=== PATIENT | male | born 1965 | race Caucasian/White ===

== ENCOUNTER 2024-07-28 14:09 | Outpatient (AMB) | payer OTHER, SELFPAY ==
--- NOTE | 2024-07-28 14:12 | MHC.PC.OV ---
Vital Signs 07/28/24 14:24 Height 6 ft 0.83 in Weight 239 lb 8 oz BMI 31.7 BP 116/76 Blood Pressure Location Lt brachial Position Sitting Respiration 16 Pulse 84 Pulse Source Pulse Oximeter Temp 98.2 F Temp Source Oral Pulse Oximetry (%) 94 Oxygen Delivery Method Room Air Intake Visit Reasons: new patient/ dermatology referral Intake Note: New patient visit. Dermatology referral Document Control Coordinator Required: No Allergies No Known Allergies Allergy (Verified 07/28/24 14:13) Tobacco use date assessed: 07/28/24 Dental Screening Dental Screen Date: 07/28/24 Did you have a dental visit in the last 12 months?: Yes Did you have a dental problem in the last 6 months where you did not have access to dental care?: No Was dental information given to patient?: Patient has dentist HPI HPI Comments History of Present Illness Details The patient is a 59 year old male with a past medical history of hypothyroid, , hyperlipidemia, diverticulitis, psoriasis presenting for follow up Hypothyroid: on levothyroxine 150mcg daily He continues to get episodes of shortness of breath-these are during activity, bending over, standing up. Gets epigastric pain when this happens. Denies heartburn, reflux. Has had q waves on EKG. He was referred for stress testing but never heard about scheduling. Back pain severe in upper lower back May 13. Woke up in excruciating pain. Localized at first then migrated bilaterally after a few day toward the thoracic spine wrapped bilaterally around to the epigastrium. Last for ~4 weeks then over the course of a few days subsided. ROS see HPI PHYSICAL EXAM: GENERAL: Alert and oriented x 3. NAD EYES: EOMI. Anicteric. HENT: Moist mucous membranes. No scleral icterus. No cervical lymphadenopathy. LUNGS: Clear to auscultation bilaterally. CARDIOVASCULAR: Regular rate and rhythm. No murmur. No JVD. ABDOMEN: Soft, non-tender +bs EXTREMITIES: No edema. Non-tender. SKIN: No rashes or lesions. Warm. NEUROLOGIC: No focal neurological deficits. CN II-XII grossly intact PSYCHIATRIC: Cooperative. Appropriate mood and affect [facility] Medical History (Updated 07/30/24 @ 16:15 by Juhi Leyva MD) Rotator cuff syndrome of right shoulder SOB (shortness of breath) Psoriasis Nephrolithiasis Obesity, Class I, BMI 30-34.9 Hypothyroidism Hx of hepatitis C Hx of gallstones History of diverticulitis Dyslipidemia Surgical History (Updated 07/28/24 @ 14:30 by Yesenia Boyce CMA) History of colon resection Hx of colonoscopy History of colostomy reversal Family History (Updated 07/28/24 @ 14:33 by Yesenia Boyce CMA) Father Afib Coronary artery disease involving coronary bypass graft Heart attack High cholesterol Sister Breast cancer Paternal Grandmother Dementia Social History (Updated 07/28/24 @ 14:27 by Yesenia Boyce CMA) Housing: House Patient Tobacco Use Status: Former Tobacco user Cigarette Packs Per Day: 1 Years Smoked: 20 e-Cigarette/Vaping Use: Never Used Second Hand Smoke Exposure: No Substance Use Type: Former Substance User and Marijuana service: No Current occupational status: retired Cognitive needs: No Hearing needs: No Vision needs: No Questionnaire PHQ-9 Over the last 2 weeks, how often have you been bothered by any of the following problems? 1. Little interest or pleasure in doing things: not at all 2. Feeling down, depressed, or hopeless: not at all 3. Trouble falling or staying asleep, or sleeping too much: not at all 4. Feeling tired or having little energy: not at all 5. Poor appetite or overeating: not at all 6. Feeling bad about yourself - or that you are a failure or have let yourself or your family down: not at all 7. Trouble concentrating on things, such as reading the newspaper or watching television: not at all 8. Moving or speaking so slowly that other people could have noticed. Or the opposite - being so fidgety or restless that you have been moving around a lot more than usual: not at all 9. Thoughts that you would be better off or of hurting yourself in some way: not at all Total score: 0 Depression Screening Interpretation: Negative Depression Screening Done: Yes 74758 - PHQ-9 Billing: Yes Source: Developed by Drs. Sebas Melara, Lisa Guido, Darrell Santiago and colleagues, with an educational stephanie from [employer]. Thrive Questionnaire Date Thrive assessed: 07/23/24 I am a: Patient What is your living situation today?: I choose not to answer this question Within the past 12 months, did the food you bought not last and you didn't have the money to get more?: I choose not to answer this question Within the past 12 months, did you worry whether your food would run out before you got money to buy more?: I choose not to answer this question Do you have trouble paying for medicines?: I choose not to answer this question Do you have trouble getting transportation to medical appointments?: I choose not to answer this question Do you have trouble paying your heating and electricity bill?: I choose not to answer this question Do you have trouble taking care of your child, family member or friend?: I choose not to answer this question Do you have trouble with day-to-day activities such as bathing, preparing meals, shopping, managing finances, etc.?: I choose not to answer this question Are you currently unemployed and looking for a job?: I choose not to answer this question Are you interested in more education?: I choose not to answer this question Please select the resources that you would like help with: None Currently or been in a relationship where the following occur: I choose not to answer THRIVE Score: 0 AUDIT C Alcohol Use Questionnaire (AUDIT-C) 1. How often do you have a drink containing alcohol?: Never 3. How often do you have six or more drinks on one occasion?: Never Total Score: 0 BARRIE-7 AMB Questionnaire BARRIE-7 Date BARRIE - 7 assessed: 07/28/24 Feeling nervous, anxious, or on edge: 0 = Not at all Not being able to stop or control worryin = Not at all Worrying too much about different things: 0 = Not at all Trouble relaxin = Not at all Being so restless that it is hard to sit still: 0 = Not at all Becoming easily annoyed or irritable: 0 = Not at all Feeling afraid as if something awful might happen: 0 = Not at all Total BARRIE-7 score (0-4 normal; 5-9 mild; 10-14 moderate; 15-21 severe): 0 Source: Developed by Drs. Sebas Melara, Lisa Guido, Darrell Santiago and colleagues, with an educational stephanie from [employer]. BARRIE-7 Assessment Billing BARRIE-7 Assessment Tool: BARRIE-7 Assessment 26484 Physical exam (Primary Care) Vital Signs: Last Vital Signs Temp 98.2 F 07/28/24 14:24 Pulse 84 07/28/24 14:24 Resp 16 07/28/24 14:24 BP 116/76 07/28/24 14:24 Pulse Ox 94 07/28/24 14:24 Oxygen Delivery Method Room Air 07/28/24 14:24 BMI result Body Mass Index 31.7 Tobacco/Smoking Status: Tobacco use Status Tobacco use date assessed 07/28/24 07/28/24 14:21 Patient Tobacco Use Status Former Tobacco user 07/28/24 14:21 e-Cigarette/Vaping Use Never Used 07/28/24 14:21 PHQ-9: PHQ-9 Score PHQ-9: Total score 0 07/30/24 16:06 Depression Screening Interpretation: Negative Thrive Assessment: Date of Thrive Assessment Date Thrive assessed 07/23/24 07/28/24 14:13 Currently or been in a relationship where the following occur: I choose not to answer Assessment and Plan Assessment & Plan (1) Hypothyroidism: Code(s): E03.9 - Hypothyroidism, unspecified Qualifiers: Hypothyroidism type: unspecified Qualified Code(s): E03.9 - Hypothyroidism, unspecified Plan: Check TSH with annual labs (2) Lumbar radiculopathy: Code(s): M54.16 - Radiculopathy, lumbar region Plan: Discussed potential annulus tear, disc herniation or ACS. xrays ordered (3) Chest pain: Code(s): R07.9 - Chest pain, unspecified Qualifiers: Chest pain type: other chest pain Qualified Code(s): R07.89 - Other chest pain Plan: exertional, positional chst pain. qwaves on ekg. recent episode of initially classic back pain though later symptoms concerning for potential ischemia Orders: Orders CA stress test 07/28/24 R07.9 - Chest pain, unspecified, R94.31 - Abnormal electrocardiogram [ECG] [EKG] XR lumbar spine 2-3V 07/28/24 E03.9 - Hypothyroidism, unspecified, M54.16 - Radiculopathy, lumbar region, N20.0 - Calculus of kidney TSH reflex Free T4 07/28/24 E03.9 - Hypothyroidism, unspecified, M54.16 - Radiculopathy, lumbar region, N20.0 - Calculus of kidney Prostate Specific Antigen 07/28/24 E03.9 - Hypothyroidism, unspecified, M54.16 - Radiculopathy, lumbar region, N20.0 - Calculus of kidney Complete Blood Count Auto Diff 07/28/24 E03.9 - Hypothyroidism, unspecified, M54.16 - Radiculopathy, lumbar region, N20.0 - Calculus of kidney Comprehensive Met. Panel 07/28/24 E03.9 - Hypothyroidism, unspecified, M54.16 - Radiculopathy, lumbar region, N20.0 - Calculus of kidney Referrals Gastroenterology Referral Z12.11 - Encounter for screening for malignant neoplasm of colon Coding Level of Care Code Est Pt Level 5 (10865) Diagnoses Hypothyroidism, unspecified type E03.9 Hypothyroidism type: unspecified Lumbar radiculopathy M54.16 Other chest pain R07.89 Chest pain type: other chest pain Additional Codes BARRIE-7 Assessment Billing - BARRIE-7 Assessment Tool: BARRIE-7 Assessment [id number] ([id number]) Time Spent (min) 44
[2024-07-28 14:24] VITALS: BP 116/76; PULSE 84; RESP 16; TEMP 36.8; O2SAT 94; BMI 31.7
== END 2024-07-28 15:30 | disposition home or self-care (01) ==
PROVIDERS: PCP Internal Medicine; Visit Provider Internal Medicine
DX: E03.9 Hypothyroidism, unspecified (principal); M54.16 Radiculopathy, lumbar region; R07.89 Other chest pain

== ENCOUNTER → 2024-07-28 14:09 | Outpatient (BNVA) | payer OTHER, SELFPAY | PROVIDERS: PCP Internal Medicine; Visit Provider Internal Medicine | DX: E03.9 Hypothyroidism, unspecified (principal); M54.16 Radiculopathy, lumbar region; R07.89 Other chest pain | CPT/HCPCS: 96127 ==

== ENCOUNTER 2024-07-31 09:16 | Outpatient (REF) | payer OTHER, SELFPAY ==
--- NOTE | ~2024-07-31 | XR_ITS ---
EXAMINATION: XR LUMBOSACRAL SPINE CLINICAL INFORMATION: M54.16 - Radiculopathy, lumbar region COMPARISON: None available. TECHNIQUE: Three views of the lumbosacral spine. FINDINGS: There is normal bone mineralization. There is no fracture, pressure deformity, or suspicious bone lesion. There is a trace levoconvex scoliosis. There is a normal lordosis. Alignment is normal without subluxation. There is mild to moderate disc degeneration focally at L5-S1, and mild facet degeneration L4-5 and L5-S1. The remainder of the intervertebral disc spaces appear preserved, with only mild degeneration evident at T11-L2. There is no soft tissue abnormality. XR/XR lumbar spine 2-3V IMPRESSION: 1. No acute findings lumbar spine. 2. Mild to moderate disc degeneration L5-S1, and mild facet degeneration spanning L4-S1. Electronically signed by: Pancho Mercedes MD 10/06/2024 04:06 PM [facility]
== END 2024-07-31 09:17 | disposition home or self-care (01) ==
LOC: HO.XRAY 09:16
PROVIDERS: PCP Internal Medicine; Visit Provider Internal Medicine
DX: E03.9 Hypothyroidism, unspecified (principal); M54.16 Radiculopathy, lumbar region; N20.0 Calculus of kidney
CPT/HCPCS: 72100

== ENCOUNTER → 2024-07-31 09:22 | Outpatient (BNV) | payer OTHER, SELFPAY | PROVIDERS: PCP Internal Medicine; Visit Provider Radiology Diagnostic Radiology | DX: M54.16 Radiculopathy, lumbar region (principal) | CPT/HCPCS: 72100 ==

== ENCOUNTER → 2024-08-31 09:22 | Outpatient (REF) | payer OTHER, SELFPAY ==
--- NOTE | 2024-08-31 09:25 | CA_ITS ---
Acquisition Time: 2024-08-31 09:22:29 Total Exercise Time: 00:07:04 Test Indications: ABN EKG Medications: SEE H Protocol: RED Max HR: 171 BPM 106% of Pred: 160 BPM Max BP: 200/078 mmHG Max Work Load: 8.6 METS Exercise stress test with exercise 7 min 4 sec of Red protocol, achieving 106% MPHR, without anginal symptoms, with isolated PVCs, with hypertensive response to exercise with max BP 200/78, without EKG changes meeting criteria for ischemia. In recovery his BP came down to 128/78. Test reviewed with Dr Ibarra Referred By: Juhi Leyva Overread By: EDD RAMOS
== END ==
LOC: HO.CARD 09:22
PROVIDERS: PCP Internal Medicine; Visit Provider Internal Medicine
DX: R07.9 Chest pain, unspecified (principal); R94.31 Abnormal electrocardiogram [ECG] [EKG]
CPT/HCPCS: 93017

== ENCOUNTER → 2024-08-31 09:25 | Outpatient (BNV) | payer OTHER, SELFPAY | PROVIDERS: PCP Internal Medicine; Visit Provider Nurse Practitioner Family | DX: I49.3 Ventricular premature depolarization (principal); R03.0 Elevated blood-pressure reading, without diagnosis of hypertension | CPT/HCPCS: 93016; 93018 ==